=== PATIENT | male | born 1990 ===

== ENCOUNTER 2025-04-03 18:50 | Emergency (ER) | payer MEDICAID, SELFPAY ==
--- OUTSIDE RECORDS SUMMARY | 2025-04-03 20:32 | XMS_ITS | Encounter Summary ---
Author Organization [facility] Address [address] [place] [address] Care Team Providers Care Qa Tester Name Role Phone Unavailable Primary Care Provider Unavailabl e Encounter Details Date Type Department Care Team (Latest Contact Info) Description 04/04/2019 Abstract C CONVERSIONS Dental, Provider, DDS Social History Tobacco Use Types Packs/Day Years Used Date Smoking Tobacco: Never Assessed Sex and Gender Information Value Date Recorded Sex Assigned at Male 07/14/2022 10:23 AM EDT Legal Sex Male 10:23 AM EDT Gender Identity Male 07/14/2022 10:23 AM EDT Sexual Orientation Straight 07/14/2022 10 :23 AM EDT documented as of this encounter Plan of Treatment Not on file documented as of this encounter Visit Diagnoses Not on filedocumented in this encounter
== END 2025-04-03 20:35 | disposition left against medical advice (07) ==
PROVIDERS: Emergency Provider Emergency Medicine
DX: M79.646 Pain in unspecified finger(s) (principal); Z53.21 Procedure and treatment not carried out due to patient leaving prior to being seen by health care provider

== ENCOUNTER 2025-04-03 21:52 | Emergency (ER) | payer MEDICAID, SELFPAY ==
[2025-04-03 22:02] VITALS: BP 135/92; PULSE 76; RESP 18; TEMP 36.8; O2SAT 98; BMI 32.7
[2025-04-04] MEDS: Tranexamic Acid 1,000 MG/10 ML VIAL 500 MG INTRANASAL (03:40)
--- NOTE | 2025-04-04 03:47 | ED.GENADULT ---
HPI - General Adult General Chief complaint: Wound/Laceration Stated complaint: has some glass on middle finger/ swollen red Time Seen by Provider: 04/04/25 03:10 Source: patient Limitations: no limitations History of Present Illness ED Provider: Funmilayo Unger PA-C HPI narrative: 34-year-old male presents with right middle finger pain times 2-3 days. Patient states he cut himself on glass. He in turn developed swelling and pain along the nail bed. Limited flexion and extension secondary to pain and swelling, denies fever. Related Data Previous Rx's ?Medication ?Instructions ?Recorded doxycycline hyclate 100 mg capsule 100 mg PO BID #13 caps 04/04/25 Allergies Allergy/AdvReac Type Severity Reaction Status Date / Time No Known Allergies Allergy Verified 04/03/25 22:03 Review of Systems Review of Systems: Yes all other systems are reviewed and are negative Constitutional: Constitutional: Denies fatigue and Denies fever(s) Musculoskeletal: Musculoskeletal: Reports arthralgias and Reports joint swelling Endocrine: Endocrine: Denies fatigue PMFSH Past Medical History Attestation statement: The following information was validated with the patient. Social History Social History Smoked in Last 30 Days: No Use of substances other than those prescribed or required for medical reasons: No Advance Directives: No Advance Directives Information Provided: Yes Do you have a plan to hurt others: No Plan Physical Exam ED Vital Signs: Vital Signs - 24 hr 04/03/25 22:02 Temperature 98.2 F Pulse Rate 76 Respiratory Rate 18 Blood Pressure 135/92 H Pulse Oximetry 98 Oxygen Delivery Method Room Air BMI result Body Mass Index 32.7 Const Other: Alert well-appearing Orientation/consciousness: patient oriented x3 Resp Effort & Inspection: normal respiratory effort Cardio Other: Normal peripheral perfusion Skin Other: Warm dry no rash Neuro General: patient oriented x3, gait normal, no focal motor deficits and CN's II-XI intact bilaterally Extrem Other: Patient able to flex and extend from MCP, PIP and DIP, although limited at the DIP. Swelling noted along the medial aspect of the nail bed of the right middle finger, fluctuance noted with the overlying erythema Psych Other: Cooperative Medications Administered Discontinued Medications Generic Name Dose Route Start Last Admin Trade Name Freq PRN Reason Stop Dose Admin Doxycycline Monohydrate 100 mg 04/04/25 03:33 04/04/25 03:39 Doxycycline Monohydrate 100 Mg Capsule PO 04/04/25 03:34 100 mg ONCE ONE Administration Tranexamic Acid 500 mg 04/04/25 03:34 04/04/25 03:40 Tranexamic Acid 1,000 Mg/10 Ml Vial INTRANASAL 04/04/25 03:35 500 mg ONCE ONE Administration Procedures Abscess I/D Site: hand Side (if applicable): right Sedation/analgesia: none Local Anesthetic: lidocaine 1% and with epi Amount of anesthesia used (mL): 3 Technique: incised with blade Amount of fluid expressed (mL): 1 Sent for culture/gram staining?: No Irrigation: Yes Packing used?: none Medical Decision Making Medical Decision Making MDM Narrative: 34-year-old male presents with right middle finger pain times 2-3 days. Patient states he cut himself on glass. He in turn developed swelling and pain along the nail bed. Limited flexion and extension secondary to pain and swelling, denies fever. No chronic issues History: Per patient I have considered the following differential diagnoses: Cellulitis, purulent cellulitis, tenosynovitis, paronychia Plan: Patient has a paronychia, we will I and D. We will place on doxy. Discharge Plan Discharge Clinical Impression: Paronychia of right middle finger Patient Disposition: Home, Self-Care Instructions: Paronychia (ED) Additional Instructions: You had an infection called a paronychia, the abscess was drained. See home care instructions. Keep the area clean and dry. Take the doxycycline as directed. Watch for signs of additional infection which would include increased swelling, increased pain, additional pus draining from the site or fever. If you develop any of these symptoms seek medical attention. Otherwise follow up with your primary care provider as needed. Prescriptions: New doxycycline hyclate 100 mg capsule 100 mg PO BID Qty: 13 0RF Print Language: [place]
[2025-04-04 03:55] VITALS: BP 130/88; PULSE 60; RESP 16; TEMP 36.6; O2SAT 96
== END 2025-04-04 04:17 | disposition home or self-care (01) ==
PROVIDERS: Emergency Provider Emergency Medicine
DX: L03.011 Cellulitis of right finger (principal); M79.644 Pain in right finger(s)
CPT/HCPCS: 10060; 99284